=== PATIENT | male | born 1970 | race Caucasian/White ===

== ENCOUNTER 2024-04-03 15:34 | Emergency (ER) | payer OTHER ==
[~2024-04-03] VITALS: Ht 165.1 cm; Wt 75.7 kg
[2024-04-03 15:42] VITALS: BP_SYST 171; PULSE 73; RESP 18; TEMP 98.3; O2SAT 98
== END 2024-04-03 17:35 | disposition home or self-care (01) ==
LOC: SED 15:34
DX: R76.11 Nonspecific reaction to tuberculin skin test without active tuberculosis (principal)
CPT/HCPCS: 71045; 99283

== ENCOUNTER 2024-04-16 16:05 | Emergency (ER) | payer OTHER ==
[~2024-04-16] VITALS: Ht 165.1 cm; Wt 72.6 kg
[2024-04-16 16:27] VITALS: BP_SYST 159; PULSE 95; RESP 18; TEMP 98; O2SAT 95
[2024-04-16] MEDS: LORazepam 1 MG TABLET PO ONE (17:10)
[2024-04-16 18:26] VITALS: BP_SYST 159; PULSE 95; RESP 18; TEMP 98; O2SAT 95
[2024-04-16] MEDS: chlordiazePOXIDE HCL 25 MG CAPSULE PO ONE (18:43)
== END 2024-04-16 18:26 | disposition home or self-care (01) ==
LOC: SED 16:05
DX: F41.0 Panic disorder [episodic paroxysmal anxiety] (principal); F32.A Depression, unspecified; F41.9 Anxiety disorder, unspecified; F15.90 Other stimulant use, unspecified, uncomplicated; F12.90 Cannabis use, unspecified, uncomplicated; I10 Essential (primary) hypertension
CPT/HCPCS: 99283